=== PATIENT | male | born 1950 | race Two or more races ===

== ENCOUNTER 2024-02-09 06:42 | Day surgery (SDC) | payer MEDICARE, OTHER, SELFPAY ==
[2024-02-04 17:20] VITALS: BMI 31.5
[2024-02-09 07:11] VITALS: BP 181/76; PULSE 63; RESP 18; TEMP 36.4; O2SAT 93
--- NOTE | 2024-02-09 07:15 | EXP.ANES.CKL ---
[facility] Disclaimer: The information contained in this section may have been updated after the patient was seen, as this information can be updated by other users. Medical History (Updated 02/04/24 @ 17:18 by Marian Ward RN) History of gastroesophageal reflux (GERD) History of hyperlipidemia History of trigger finger Surgical History (Updated 02/04/24 @ 17:14 by Marian Ward RN) History of colonoscopy History of throat surgery Family History (Updated 02/04/24 @ 17:14 by Marian Ward RN) Other Family history of colon cancer Social History (Updated 02/04/24 @ 17:19 by Marian Ward RN) Smoking Status: Never smoker alcohol intake: never substance use type: denies use current occupational status: retired Travel in the last 8 weeks: None [facility] Anesthesia Checklist Patient Identification Patient Identification: Arm Band and Verbal (Name & ) Structural Data Admitted From: Home Planned Operative Procedure/s: Colonoscopy Consent for Planned Operative Procedure(s) Verified: Yes Verified Documents: Surgical Consent and History and Physical NPO Status Verified Time NPO: 02:00 Additional verifications Patient : No Anesthesia Reactions: No Previous Colonoscopy: Yes Cardiovascular Assessment Heart Sounds: S1 & S2 Pulse Rhythm: Irregular Peripheral Edema: No Airway Assessment Mallampati Score:: Class II C-Spine Mobility Assessed: Yes (FROM) TMJ Mobility Assessed: Yes Dentition: Good Dentition (Nothing loose per pt.) Neurological Assessment Level of Consciousness: Awake, Alert, Appropriate and Follows Commands Hx Seizures: No Numbness or tingling in extremities: No Anesthesia Plan Anesthesia Risk discussed: Yes Anesthesia Plan: Verified ASA Class: III Anesthesia Type: MAC
[2024-02-09] MEDS: 0.9 % SODIUM CHLORIDE 1000ML 1,000 ML 25 ML IV (07:19)
[2024-02-09 07:54] VITALS: O2SAT 98
--- NOTE | 2024-02-09 07:56 | P.HP_ITS ---
History of Present Illness *Admission Date: 02/09/24 *Reason for visit:: Surveillance/personal history of colon polyps and family history of colon c *History of present illness: Mr. Russo is a 73-year-old gentleman who is here for follow-up surveillance colonoscopy. He does have a personal history of adenomatous polyps and a family history of colon cancer (sister). His last colonoscopy was 5 or 6 years ago. The examination is deemed medically necessary for colonoscopy. The patient has been seen, interviewed and examined prior to the procedure by both myself and the anesthesia provider. [facility] Disclaimer: The information contained in this section may have been updated after the patient was seen, as this information can be updated by other users. Medical History (Updated 02/09/24 @ 07:57 by Michael Ta II, MD) History of gastroesophageal reflux (GERD) History of hyperlipidemia History of trigger finger Surgical History History of colonoscopy History of throat surgery Family History Other Family history of colon cancer Social History (Updated 02/09/24 @ 07:17 by Vinita Mejia RN) Smoking Status: Former smoker alcohol intake: never substance use type: denies use current occupational status: employed Travel in the last 8 weeks: None caffeine: Yes Review of Systems Review of Systems Review of systems (narrative): Negative *Cardiovascular Comments: Negative *Gastrointestinal Comments: Negative *Genitourinary Comments: Negative *Musculoskeletal Comments: Negative *Neurologic Comments: Negative Meds Home Medications and Allergies Home Medications ?Medication ?Instructions ?Recorded ?Confirmed ?Type sod picosulf 10 mg-magnes 3.5 175 ml PO DAILY Bowel Prep 2 doses 02/02/24 Rx gram-citric 12 gram/175 mL oral #350 mL solution (Clenpiq) atorvastatin 40 mg tablet 40 mg PO DAILY 02/04/24 02/09/24 History fluticasone propionate 50 1 spray intranasal DAILY 02/04/24 02/09/24 History mcg/actuation nasal spray,suspension omeprazole 40 mg capsule,delayed 40 mg PO DAILY 02/04/24 02/09/24 History release chlorthalidone 25 mg tablet 25 mg PO DAILY 02/09/24 02/09/24 History losartan 100 mg tablet 100 mg PO DAILY 02/09/24 02/09/24 History potassium chloride 20 mEq 20 meq PO DAILY 02/09/24 02/09/24 History tablet,extended release New Prescriptions to Start Prescriptions: Allergies Allergy/AdvReac Type Severity Reaction Status Date / Time No Known Allergies Allergy Verified 02/09/24 07:03 Exam Data for Last 24 hours Vital signs and Labs for Last 24 Hours: Temp Pulse Resp BP Pulse Ox O2 Del Method O2 Flow Rate 97.6 F 63 18 181/76 H 93 L Nasal Cannula 5 02/09/24 07:11 02/09/24 07:11 02/09/24 07:11 02/09/24 07:11 02/09/24 07:11 02/09/24 07:54 02/09/24 07:54 *Routine HEENT Exam Head: Present normocephalic Eye: Present EOMI and PERRL ENT: Present mucous membranes moist *Routine Neck Exam Neck: Present supple *Routine Respiratory Exam Respiratory: Present CTA bilaterally *Routine Cardiovascular Exam Cardiovascular: Present RRR *Routine Abdominal Exam Abdominal: Present soft and normoactive bowel sounds; Absent tenderness *Routine Rectal Exam Rectal:: deferred *Routine Genitalia Exam Genitalia:: deferred *Routine Extremities Exam Extremities: Absent cyanosis, clubbing or edema *Routine Skin Exam Skin: Present warm; Absent rash *Routine Neurological Exam Neurological: Present alert and oriented X3 Assessment and Plan *Assessment and plan (1) Personal history of adenomatous and serrated colon polyps: Status: Acute Category: Medical Code(s): Z86.0101 - Personal history of adenomatous and serrated colon polyps (2) Family history of colon cancer: Status: Acute Category: Medical Code(s): Z80.0 - Family history of malignant neoplasm of digestive organs Plan A/P: 1. Personal history of adenomatous polyps and family history of colon cancer is the preprocedural diagnosis. The patient will be anesthetized/sedated using MAC sedation. The patient has been seen and examined. Cardiac and lung assessment prior to the examination is stable. Proceed with planned colonoscopy
--- NOTE | 2024-02-09 07:57 | HMH.PROCNOTE ---
[facility] Procedure Note Date: 02/09/24 Time: : Procedure Note:: Colonoscopy Procedure Report: Colonoscopy with cold snare polypectomy and Endo Clip placement Endoscopist: Michael Ta II, MD Referring physician: Binta Bach MD Date of Procedure: February 09, 2024 Equipment: Olympus 190 variable stiffness pediatric colonoscope Sedation: MAC sedation Indication: Mr. Russo is a 73-year-old gentleman who is here for follow-up surveillance colonoscopy secondary to a personal history of adenomatous colon polyps and family history of colon cancer. His sister had colon cancer in her early 50s. The patient also had sigmoid resection (diverticulitis). The patient's last colonoscopy was 5 to 6 years ago and he had adenomatous polyps removed. He reports no abdominal pain, weight loss, change in his bowel habits or rectal bleeding. Procedure: Prior to the procedure, a history and physical exam was performed, and patient's medications and allergies were reviewed. The risks, benefits and alternatives of the sedation and procedure were discussed with the patient. All questions were answered and informed consent was obtained. The patient was brought to the procedure room. Patient identification and proposed procedure were verified by the physician and the nurse. The patient was placed in a left lateral decubitus position and the scope was passed under direct vision. Throughout the procedure, the patient's blood pressure, pulse, and oxygen saturations were monitored continuously. The colonoscopy was accomplished without difficulty. The patient tolerated the procedure well. Findings: On digital rectal examination there was normal rectal tone. There were no external hemorrhoids. The prostate was 2-3+, smooth, soft, symmetric without nodules. The colonoscope was introduced through the anal canal to the rectum and advanced to the cecum. The ileocecal valve and appendiceal orifice were identified. The scope was advanced a short distance into the ileum which appeared grossly normal. The scope was then withdrawn into the colon. There were 11 polyps (cecum x 4 (3, 4, 6 and 7 mm), ascending x 2 (4 and 8 mm), transverse x 1 (6 mm), descending x 2 (5 and 7 mm) and rectum x 2 (4 and 6 mm)). There was minor heme at the rectal polyp removal polypectomy site so a single Endo Clip was placed over the polypectomy site with hemostasis. The remaining cecum, ascending and transverse colon and mucosa were grossly normal. There were scattered diverticuli throughout the descending and remaining sigmoid colon (LEFT colon). There was an end to side colocolonic anastomosis the rectum itself was normal. Upon retroflexion within the rectum there were grade 2 internal hemorrhoids. The preparation was excellent throughout with Gold Bar Preparation Score of 9. The cecal time was 17 minutes. Impression: 1. Colonic polyps x 11 (ranging in size from 3 to 8 mm) 2. Left-sided diverticulosis with prior sigmoid resection (end to side anastomosis) 3. Grade 2 internal hemorrhoids Plan: I will follow-up the polyp histology and recommend repeat surveillance colonoscopy again in 1 to 3 years based upon the number of adenomatous colon polyps. I would encourage psyllium bulking fiber supplementation on a maintenance basis.
[2024-02-09 08:26] VITALS: BP 136/85; PULSE 65; RESP 16; TEMP 36.9; O2SAT 95
[2024-02-09 08:36] VITALS: BP 131/70; PULSE 62; RESP 18; O2SAT 99
[2024-02-09 08:46] VITALS: BP 127/71; PULSE 51; RESP 18; O2SAT 98
[2024-02-09 08:56] VITALS: BP 155/80; PULSE 53; RESP 18; O2SAT 98
== END 2024-02-09 09:05 | disposition home or self-care (01) ==
PROVIDERS: Visit Provider Internal Medicine Gastroenterology
PROC: 0DJD8ZZ Inspection of Lower Intestinal Tract, Via Natural or Artificial Opening Endoscopic (ICD-10-PCS; CPT 45378; principal; 2024-02-09 08:00)
DX: Z12.11 Encounter for screening for malignant neoplasm of colon (principal); Z86.0101 Personal history of adenomatous and serrated colon polyps; Z80.0 Family history of malignant neoplasm of digestive organs; D12.2 Benign neoplasm of ascending colon; D12.0 Benign neoplasm of cecum; D12.4 Benign neoplasm of descending colon; D12.3 Benign neoplasm of transverse colon; K62.1 Rectal polyp
CPT/HCPCS: 45385; 88305; J7030